=== PATIENT | female | born 1985 | race Caucasian/White ===

== ENCOUNTER 2021-12-20 13:30 | Day surgery (SDC) | payer BC, SELFPAY ==
[~2021-12-20] VITALS: Ht 162.6 cm; Wt 55.8 kg
[2021-12-20 13:30] VITALS: BP_SYST 134
--- NOTE | 2021-12-20 13:45 | NUR ---
TRIAGED AND BROUGHT IMMEDIATELY BACK TO BED #1, CALLED DR ANDREWS TO BEDSIDE. PT IS HAVING HEAVY BLEEDING S/P TAKING MEDICATION FOR LAST NIGHT. PT STATES SHE IS GOING THROUGH A LARGE PAD Q 30 MINUTES. Addendum: 12/20/21 at 1443 by [email or web address] Patient will be admitted to care of DR QUIÑONEZ. Admitted to SURGERY unit. Will go to room SURGERY. Belongings list completed. Complete and up to date summary report printed. SBAR report to be given at bedside with opportunity for questions.
[2021-12-20] MEDS ORDERED: NACL 0.9% 1,000 ML IV ONE (14:00)
--- NOTE | 2021-12-20 14:00 | NUR ---
SPOKE WITH DR QUIÑONEZ AND PT WILL GET PREPPED FOR D&C.
--- NOTE | 2021-12-20 14:27 | NUR ---
PIV PPLACED BLOOD URINE CYNDY TO LAB. DR QUIÑONEZ AT BEDSIDE, SURGERY CONSENT SIGNED BLOOD CONSENT SIGNED, 1 LITER NS WITH 20 UNITS PITOCIN W/O. SURGERY IS AWARE THAT THE RESULTS HAVE NOT RESULTED YET
[2021-12-20] MEDS ORDERED: OXYTOCIN/0.9 % SODIUM CHLORIDE 1,000 ML IV SCH (14:30)
[2021-12-20 14:39] LABS: BASOPHILS # (AUTO) 0.2 K/uL (0.0-0.2); BASOPHILS % (AUTO) 1.4 % (0.0-2.0); EOSINOPHILS # (AUTO) 0.1 K/uL (0.0-0.4); EOSINOPHILS % (AUTO) 0.7 % (0.0-4.0); HEMATOCRIT 36.4 % (36-48); HEMOGLOBIN 12.2 g/dL (12.0-16.0); LYMPHOCYTES # (AUTO) 2.3 K/uL (1.0-5.5); MEAN CORPUSCULAR HEMOGLOBIN 32 pg (27-31); MEAN CORPUSCULAR HGB CONC 34 % (32-36); MEAN CORPUSCULAR VOLUME 94 fL (79.0-98.0); MONOCYTES # (AUTO) 0.9 K/uL (0.0-1.0); MONOCYTES % (AUTO) 5.4 % (1.7-9.3); NEUTROPHILS # (AUTO) 13.9 K/uL (1.8-7.7); NEUTROPHILS % (AUTO) 79.5 % (40.0-70.0); PLATELET COUNT (AUTO) 253 K/uL (130-430); RED BLOOD CELL COUNT(AUTO) 3.87 MIL/uL (4.2-6.2); RED CELL DISTRIBUTION WIDTH 13.2 % (9.0-15.0); WHITE BLOOD COUNT (AUTO) 17.5 K/uL (4.8-10.8)
[2021-12-20] MEDS ORDERED: ONDANSETRON HCL 4 MG/2 ML VIAL IVP PRN ×2 (15:15)
[2021-12-20] MEDS ORDERED: HYDROcodone/ACETAMIN 5-325 MG TAB (NORCO/ VICODIN) PO PRN (15:15)
[2021-12-20] MEDS ORDERED: MORPHINE 2 MG/ML INJ. SYRINGE IVP PRN (15:15)
[2021-12-20] MEDS ORDERED: OXYCODONE/ACETAMINOPHEN 5-325 TABLET PO PRN ×2 (15:15)
[2021-12-20] MEDS ORDERED: fentaNYL CITRATE/PF 100 MCG/2 ML AMP IVP PRN ×2 (15:15)
[2021-12-20] MEDS ORDERED: METOCLOPRAMIDE HCL 10 MG/2 ML VIAL IVP PRN (15:15)
[2021-12-20] MEDS ORDERED: MIDAZOLAM HCL 5 MG/ML VIAL (VERSED) IV ONE (15:30)
[2021-12-20] MEDS ORDERED: WATER FOR IRRIGATION,STERILE 1,000 ML IRRIG.SOLN IR ONE (15:30)
[2021-12-20] MEDS ORDERED: LR 1,000 ML IV.SOLN IV ONE (15:30)
[2021-12-20] MEDS ORDERED: CEFAZOLIN 2 GM IVPB PREMIX 50 ML IV ONE (15:30)
[2021-12-20 15:33] LABS: BILIRUBIN,URINE NEGATIVE (NEGATIVE); BLOOD, URINE 3+ (NEGATIVE); CLARITY/URINE CLOUDY (CLEAR); COLOR,URINE RED (YELLOW); GLUCOSE,URINE NEGATIVE (NEGATIVE); KETONES,URINE 1+ (NEGATIVE); LEUKOCYTE ESTERASE ,URINE TRACE (NEGATIVE); NITRITE, URINE NEGATIVE (NEGATIVE); PH,URINE 5.5 (5.0-8.0); PROTEIN URINE 1+ (NEGATIVE); UROBILINOGEN,URINE 0.2 (0.2-1.0)
[2021-12-20] MEDS ORDERED: OXYTOCIN 10 UNIT/ML VIAL ONE (16:12)
[2021-12-20 16:13] LABS: BACTERIA,URINE FEW /HPF (None Seen); MUCUS,URINE None Seen /LPF (None Seen); RBC,URINE >100 /HPF (0-3); WBC,URINE 0-3 /HPF (0-3)
[2021-12-20 16:21] LABS: CALCIUM 8.3 mg/dL (8.4-11.0); CREATININE 0.63 mg/dL (0.55-1.30); POTASSIUM 3.6 mmol/L (3.5-5.1)
[2021-12-20 16:27] LABS: ALBUMIN 3.1 g/dL (3.4-4.8); TOTAL BILIRUBIN 0.2 mg/dL (0.0-1.0)
[2021-12-20] MEDS ORDERED: METHYLERGONOVINE MALEATE 0.2 MG TABLET PO ONE (16:30)
[2021-12-20 18:01] LABS: INR 0.9 (0.8-1.2); PROTHROMBIN TIME 9.5 SECS (9.5-12.5)
--- NOTE | 2021-12-20 18:14 | NUR ---
RECEIVED PATIENT POST D&C WITH IV PITOCIN INFUSING. PATIENT IS AWAKE, ALERT, ORIENTED X4 TO NAME, PERSON, PLACE, AND TIME. RESPIRATION EVEN AND UNLABORED NO S/S OF ANY ACUTE DISTRESS NOTED. ABLE TO VERBALIZE NEEDS NO C/O ANY PAIN OR DISCOMFORT @ THIS TIME. ABDOMEN SOFT AND NON-DISTENDED, POSITIVE BOWEL SOUND X 4 NO N/V OR DIARRHEA NOTED. SKIN WARM AND DRY INTACT W/O ANY REDNESS OR EDEMA NOTED. WILL MONITOR PATIENT FOR ANY EXCESSIVE VAGINAL DISCHARGE AND/OR BLEEDING. WILL CONTINUE TO MONITOR PATIENT UNTIL DC'D REQUIREMENT ARE MET.
--- NOTE | 2021-12-20 21:30 | NUR ---
Pt with order to be discharged home s/p D&C. Discharge/post D&C instructions reviewed/discussed with pt at bedside. Discussed order to make a follow up visit with Dr. Louie in 2 weeks and agreed. Acknowledged when to contact doctor or when to go to nearest ER if needed. Written as well as verbal instructions reviewed with patient and verbalized clear understanding. All belongings discharged with pt. VS upon discharge WNL. is providing transportation home. Offered a wheelchair to transfer to car, but pt refused and reported wanting to take a slow walk to her car instead. Pt was escorted to car for safety.
[2021-12-20 21:49] VITALS: BP_SYST 122
[2021-12-20] MEDS ORDERED: METHYLERGONOVINE MALEATE 0.2 MG TABLET PO SCH (22:00)
== END 2021-12-20 22:10 | disposition home or self-care (01) ==
LOC: SED 13:30 → SDS 14:33 → SMU 14:41 → SDS 22:10
PROVIDERS: ATTEND Specialist
DX: O03.4 Incomplete spontaneous abortion without complication (principal); Z79.01 Long term (current) use of anticoagulants; Z20.822 Contact with and (suspected) exposure to COVID-19
CPT/HCPCS: 36415; 59812; 80053; 81000; 85025; 85610; 86886; 86900; 86901; 87086; 87426; 88305; C1755; J0690; J2250; J2590; J7120

== ENCOUNTER 2022-04-23 11:20 | Outpatient (CLI) | payer BC ==
[2022-04-23] MEDS ORDERED: iohexoL 240 mgI/mL, 50 ML INFUS..BTL IV ONE (11:38)
== END 2022-04-23 19:50 | disposition home or self-care (01) ==
LOC: SRD 11:20
PROVIDERS: ATTEND Specialist
DX: N92.6 Irregular menstruation, unspecified (principal); N85.6 Intrauterine synechiae
CPT/HCPCS: 58340; 74740; C1751; Q9966

== ENCOUNTER 2023-04-02 07:10 | Day surgery (SDC) | payer BC ==
[~2023-04-02] VITALS: Ht 162.6 cm; Wt 55.8 kg
[2023-04-02] MEDS ORDERED: KETOROLAC TROMETHAMINE 30 MG VIAL ONE (10:09)
[2023-04-02] MEDS ORDERED: PROPOFOL 200MG/ 20ML VIAL (DIPRIVAN) IV ONE (10:09)
[2023-04-02] MEDS ORDERED: LIDOCAINE 2%, 20 ML MDV ONE (10:09)
[2023-04-02] MEDS ORDERED: ONDANSETRON HCL 4 MG/2 ML VIAL ONE (10:09)
[2023-04-02] MEDS ORDERED: MIDAZOLAM HCL 2 MG/2 ML VIAL (VERSED) ONE (10:09)
[2023-04-02] MEDS ORDERED: SEVOFLURANE 15 MIN GAS INH ONE (10:09)
[2023-04-02] MEDS ORDERED: DEXAMETHASONE SOD PHOSPHATE 4 MG/ML VIAL ONE (10:09)
[2023-04-02] MEDS ORDERED: ceFAZolin SODIUM 1 GM VIAL ONE (10:09)
[2023-04-02] MEDS ORDERED: LR 1,000 ML IV.SOLN IV ONE (10:09)
[2023-04-02] MEDS ORDERED: WATER FOR IRRIGATION,STERILE 1,000 ML IRRIG.SOLN IR ONE (10:09)
[2023-04-02] MEDS ORDERED: fentaNYL CITRATE/PF 100 MCG/2 ML AMP ONE (10:09)
[2023-04-02] MEDS ORDERED: METOCLOPRAMIDE HCL 10 MG/2 ML VIAL IVP PRN (10:45)
[2023-04-02] MEDS ORDERED: HYDROmorphone 1 MG/ML INJ. CARTRIDGE IVP PRN ×2 (10:45)
[2023-04-02] MEDS ORDERED: MEPERIDINE HCL/PF 25 MG/ML DISP.SYRIN IVP PRN (10:45)
[2023-04-02] MEDS ORDERED: LR 1,000 ML IV SCH (10:45)
[2023-04-02] MEDS ORDERED: ONDANSETRON HCL 4 MG/2 ML VIAL IVP PRN (11:15)
[2023-04-02] MEDS ORDERED: KETOROLAC TROMETHAMINE 30 MG VIAL IVP ONE (11:15)
[2023-04-02 12:10] VITALS: BP_SYST 125
== END 2023-04-02 13:15 | disposition home or self-care (01) ==
LOC: SDS 07:10 → SMU 07:13 → SDS 13:15
PROVIDERS: ATTEND Specialist
DX: N91.4 Secondary oligomenorrhea (principal); N94.6 Dysmenorrhea, unspecified; N85.6 Intrauterine synechiae; J45.909 Unspecified asthma, uncomplicated; Z79.899 Other long term (current) drug therapy
CPT/HCPCS: 87081; 58558; 88305; J0690; J1100; J1885; J2001; J3465; J2405; J2704; J3010; J7120